=== PATIENT | male | born 1960 | race Caucasian/White ===

== ENCOUNTER 2017-11-28 10:20 | Outpatient (CLI) | payer MEDICARE ==
[2017-11-28 11:24] LABS: #Basophils 0.1 thou/uL (0.0-0.2); #Eosinphils 0.2 thou/uL (0.0-0.7); #Lymphocytes 1.4 thou/uL (1.20-3.40); #Monocytes 0.8 thou/uL (0.11-0.59); #Neutrophils 4.6 thou/uL (1.40-6.50); %Basophils 0.9 % (0.0-1.0); %Eosinophils 2.3 % (0.0-10.0); %Lymphocytes 20.3 % (21.0-51.0); Hematocrit 47.2 % (42.0-52.0); Mean Platelet Volume 7.2 fL (7.4-10.4); Red Blood Cell (RBC) Count 5.19 mill/uL (4.70-6.10); White Blood Cell (WBC) Count 7.1 thou/uL (4.8-10.8)
[2017-11-28 11:40] LABS: Anion Gap 14 mmol/L (10-20); BUN (Urea Nitrogen) 13 mg/dL (8.4-25.7); Calc. Creatinine Clearance 0 mL/min (70-130); Calcium 9.9 mg/dL (7.8-10.44); Carbon Dioxide 27 mmol/L (22-29); Chloride 105 mmol/L (98-107); Estimated GFR-MDRD 67
--- NOTE | 2017-11-28 14:22 | EKG ---
Test Reason : Blood Pressure : / mmHG Vent. Rate : 069 BPM Atrial Rate : 069 BPM P-R Int : 132 ms QRS Dur : 090 ms QT Int : 376 ms P-R-T Axes : 028 035 013 degrees QTc Int : 402 ms Normal sinus rhythm Normal ECG No previous ECGs available Confirmed by DR. Troy CHAVIS ([id number]) on 11/28/2017 2:21:38 PM Referred By: IMAN Confirmed By:DR. Troy CHAVIS
== END 2017-11-28 10:21 | disposition home or self-care (01) ==
LOC: LABBT 10:20
PROVIDERS: ATTEND Orthopaedic Surgery
DX: Z01.818 Encounter for other preprocedural examination (principal); S43.431A Superior glenoid labrum lesion of right shoulder, initial encounter
CPT/HCPCS: 80048; 85025; 93005; 93010

== ENCOUNTER 2017-12-05 05:36 | Day surgery (SDC) | payer MEDICARE ==
[2017-11-28 10:36] VITALS: BMI 25.0
[2017-12-05] MEDS ORDERED: CEFAZOLIN/Water 2 GM/20 ML SYRINGE ONE (05:57)
[2017-12-05] MEDS ORDERED: Midazolam HCl 2 mg/2 ml Vial ONE (06:49)
[2017-12-05] MEDS ORDERED: Fentanyl 100 MCG/2 ML VIAL ONE (06:50)
[2017-12-05] MEDS ORDERED: Promethazine HCl 25 MG/ML VIAL IM PRN (07:22)
[2017-12-05] MEDS ORDERED: Ondansetron HCl/PF 4 MG/2 ML Vial IVP PRN (07:22)
[2017-12-05] MEDS ORDERED: Zolpidem Tartrate 5 MG TAB PO PRN (07:22)
[2017-12-05] MEDS ORDERED: Ropivacaine 0.2% 550 ML 550 ML NERVE BLCK SCH (07:22)
--- NOTE | 2017-12-05 08:52 | OP ---
PREOPERATIVE DIAGNOSES: Labrum tear, impingement syndrome, biceps tendinitis. POSTOPERATIVE DIAGNOSES: Labrum tear, impingement syndrome, biceps tendinitis. PROCEDURE: Arthroscopic subacromial decompression, arthroscopic biceps tenodesis, and arthroscopic l abral debridement. SURGEON: Curtis Preston M.D. ANESTHESIA: General. BLOOD LOSS: Minimal. SPECIMEN: None. DRAINS: None. COMPLICATIONS: None. DESCRIPTION OF PROCEDURE: The patient was taken to the operating room where general anesthesia was i nduced. He received Ancef preoperatively. He was placed in the left lateral decubitus position. Ri t arm was placed in traction and prepped and draped in the usual sterile fashion. I made a posteri or portal into the joint. There was no significant arthritis in the joint. There was significant la bral tearing anterior and inferiorly and biceps tendinitis. I tagged the biceps and transected this proximally. Attention was then placed in the subacromial bursa. A significant bursectomy was perfor med. CA ligament was taken down. Anterior and inferior acromioplasty was performed and I exposed th e biceps tendon. I exposed the bicipital groove and delivered the biceps tendon through the lateral portal and tagged this for about 25 mm with FiberWire suture and measured this found to be about tigh t 7 fit so I drilled a 7.5 proximal humerus and deployed the tendon into the 25 mm deep hole and then fixed this with a 7 mm biceps tenodesis screw from [employer]. Sutures were then tied over the top of the screw. Shoulder was then drained. Portals closed with nylon suture and sterile dressings luan palacios There were no complications.
[2017-12-05] MEDS ORDERED: Ketorolac Tromethamine 30 MG/ML VIAL ONE (13:40)
[2017-12-05] MEDS ORDERED: PHENYLEPHRINE-NS 100 MCG/ML 10 ML SYRINGE ONE (13:40)
[2017-12-05] MEDS ORDERED: Ondansetron HCl/PF 4 MG/2 ML Vial ONE (13:40)
[2017-12-05] MEDS ORDERED: Dexamethasone 20 MG/5 ML VIAL ONE (13:40)
[2017-12-05] MEDS ORDERED: Vecuronium 10 MG VIAL ONE (13:40)
[2017-12-05] MEDS ORDERED: Lidocaine 1% PF 5 ML VIAL ONE (13:40)
[2017-12-05] MEDS ORDERED: PROPOFOL 200 MG/20 ML VIAL ONE (13:40)
[2017-12-05] MEDS ORDERED: Glycopyrrolate 0.2 MG/ML 5 ML SYRINGE ONE (13:40)
== END 2017-12-05 11:05 | disposition home or self-care (01) ==
LOC: SDC 05:36
PROVIDERS: ATTEND Orthopaedic Surgery
PROC: 0LS14ZZ Reposition Right Shoulder Tendon, Percutaneous Endoscopic Approach (ICD-10-PCS; principal; 2017-12-05)
PROC: 0RBJ4ZZ Excision of Right Shoulder Joint, Percutaneous Endoscopic Approach (ICD-10-PCS; 2017-12-05)
DX: S43.431A Superior glenoid labrum lesion of right shoulder, initial encounter (principal); M75.21 Bicipital tendinitis, right shoulder; E07.9 Disorder of thyroid, unspecified; Z91.048 Other nonmedicinal substance allergy status; Z98.890 Other specified postprocedural states; Z87.891 Personal history of nicotine dependence
CPT/HCPCS: 29823; 29828; 97139; A4306; C1713; G8984; G8985; G8986; J1100; J1885; J2001; J2250; J2405; J2704; J2795; J3010

== ENCOUNTER 2022-08-03 07:35 | Outpatient (CLI) | payer MEDICARE | END 2022-08-03 07:36 | disposition home or self-care (01) | LOC: BICULT 07:35 | PROVIDERS: ATTEND Nurse Practitioner Family | DX: R10.11 Right upper quadrant pain (principal) | CPT/HCPCS: 76705 ==

== ENCOUNTER 2024-04-23 08:38 | Outpatient (CLI) | payer MEDICARE | END 2024-04-23 08:39 | disposition home or self-care (01) | LOC: CT 08:38 | PROVIDERS: ATTEND Student in an Organized Health Care Education/Training Program | DX: R74.8 Abnormal levels of other serum enzymes (principal) | CPT/HCPCS: 74177; 82565 ==